=== PATIENT | female | born 1990 | race Caucasian/White ===

== ENCOUNTER 2017-02-23 11:58 | Emergency (ER) | payer BC, OTHER ==
[~2017-02-23] VITALS: Ht 162.6 cm; Wt 68.0 kg
--- NOTE | ~2017-02-23 | CR181 ---
[facility] A Service of [facility] & [facility] RADIOLOGY TEXT RESULTS PATIENT: SILVA RUSSELL LOCATION: [facility] : [birth year] UNIT #: [id number] AGE: [address]: Brooke Kwong APRN SEX: F ORDER DR: [id number] [facility] [address] [place], [place] [address] [id number] E MR#: [id number] Acc #: [id number] NAME: SILVA RUSSELL : 1990 SEX: F STUDY DATE/TIME: 02/23/2017 12:26 UNIT: [facility] ROOM: STUDY DESCRIPTION: CR Lumbar Spine 2 or 3 Views Attending Physician: Brooke Kwong A.P.R.N. Ordering Physician: Ed Doctor [id number] [facility] Primary Care Physician: Primary Care Physician No MEDICAL IMAGING REPORT This report is preliminary unless electronic signature is present EXAM Lumbar spine 02/23/2017. [facility] HISTORY 26-year-old female with increasing back pain, stiffness since fall on 02/22/2017. Patient in cervical collar. FINDINGS AP and lateral lumbar spine views show normal lumbar alignment and curvature. Vertebral body heights and disc spaces are preserved. Posterior elements are intact. IMPRESSION Negative lumbar spine. Dictated by... Yamil Santana M.D. THIS IS AN ELECTRONICALLY VERIFIED REPORT Yamil Santana M.D. at 02/23/2017 3:40 PM VIANCA/michelle TD: 02/23/2017 15:26 JOB #: [id number] MEDICAL IMAGING REPORT Page 1 of 1 COPY
--- NOTE | ~2017-02-23 | CR211 ---
[facility] A Service of [facility] & [facility] RADIOLOGY TEXT RESULTS PATIENT: SILVA URSSELL LOCATION: [facility] : [birth year] UNIT #: [id number] AGE: [address]: Brooke Kwong APRN SEX: F ORDER DR: [id number] [facility] [address] [place], [place] [address] [id number] E MR#: [id number] Acc #: [id number] NAME: SILVA RUSSELL : 1990 SEX: F STUDY DATE/TIME: UNIT: [facility] ROOM: STUDY DESCRIPTION: CR Ribs Uni 2 View W PA Ch Rt Attending Physician: Brooke Kwong A.P.R.N. Ordering Physician: Ed Freedom Alanis M.D. Primary Care Physician: Primary Care Physician No MEDICAL IMAGING REPORT This report is preliminary unless electronic signature is present EXAM Chest with right rib series 02/23/2017 1225 hours HISTORY Patient fell on 02/22/2017 complaining of anterior rib pain, back and neck pain on the right side with stiffness. COMPARISON 06/19/2015 chest film FINDINGS Upright chest film and AP and oblique views of the right ribs demonstrate normal cardiac, mediastinal and hilar contours. The lungs are well expanded and clear. There is no pleural effusion or pneumothorax. AP and oblique view of the right ribs demonstrate no rib fracture. IMPRESSION 1. No acute findings in the chest. 2. No right rib fracture, pleural effusion or pneumothorax. Dictated by... Blanquita Raza M.D. THIS IS AN ELECTRONICALLY VERIFIED REPORT Blanquita Raza M.D. at 02/23/2017 4:16 PM SMM/giselle TD: 02/23/2017 15:27 JOB #: [id number] MEDICAL IMAGING REPORT Page 1 of 1 COPY
--- NOTE | ~2017-02-23 | CR58 ---
[facility] A Service [facility] RADIOLOGY TEXT RESULTS PATIENT: SILVA RUSSELL LOCATION: [facility] : [birth year] UNIT #: [id number] AGE: [address]: Brooke Kwong APRN SEX: F ORDER DR: [id number] [facility] [address] [place], [place] [address] [id number] E MR#: [id number] Acc #: [id number] NAME: SILVA RUSSELL : 1990 SEX: F STUDY DATE/TIME: 02/23/2017 12:34 UNIT: [facility] ROOM: STUDY DESCRIPTION: CR Cervical Spine 2 or 3 Views Attending Physician: Brooke Kwong A.P.R.N. Ordering Physician: Ed Freedom Alanis M.D. Primary Care Physician: No Primary Care Physician MEDICAL IMAGING REPORT This report is preliminary unless electronic signature is present EXAM Cervical spine 02/23/2017, [facility]. HISTORY 26-year-old woman status post fall on 02/22/2017. Pain in the right anterior ribs, back and neck, right side with neck stiffness. Pain in neck getting worse. Patient in cervical collar. COMPARISON Cervical spine 11/10/2013. TECHNIQUE AP, lateral and odontoid views are provided. FINDINGS There is reversal of the normal cervical curve with slight cervical kyphotic curvature. Posterior alignment is preserved. Vertebral body heights and disc spaces are normal. Posterior elements are intact. The odontoid is intact. There is no prevertebral soft tissue swelling. IMPRESSION Mild reversal of the cervical curve only. Negative cervical spine otherwise. Dictated by... Yamil Santana M.D. THIS IS AN ELECTRONICALLY VERIFIED REPORT Yamil Santana M.D. at 02/23/2017 3:40 PM VIANCA/elyssa TD: 02/23/2017 15:24 JOB #: [id number] [facility] A Service of [facility] RADIOLOGY TEXT RESULTS PATIENT: SILVA RUSSELL [id number] [birth year] UNIT #: [id number] AGE: [address]: Brooke Kwong APRN SEX: F ORDER DR: MEDICAL IMAGING REPORT Page 1 of 1 COPY
--- NOTE | ~2017-02-23 | CR243 ---
[facility] A Service of [facility] & [facility] RADIOLOGY TEXT RESULTS PATIENT: SILVA RUSSELL LOCATION: [facility] : [birth year] UNIT #: [id number] AGE: [address]: Brooke Kwong APRN SEX: F ORDER DR: [id number] [facility] [address] [place], [place] [address] [id number] E MR#: [id number] Acc #: [id number] NAME: SILVA RUSSELL : 1990 SEX: F STUDY DATE/TIME: 02/23/2017 12:26 UNIT: [facility] ROOM: STUDY DESCRIPTION: CR Thoracic Spine 3 Views Attending Physician: Brooke Kwong A.P.R.N. Ordering Physician: Ed Doctor [id number] [facility] Primary Care Physician: Primary Care Physician No MEDICAL IMAGING REPORT This report is preliminary unless electronic signature is present EXAM Thoracic spine, 02/23/2017 HISTORY 26-year-old female increasing back pain since fall on 02/22/2017. Pain upper back ,lower back and cervical spine. Symptoms increasing. FINDINGS AP and lateral thoracic spine views show normal thoracic alignment and curvature. Vertebral body heights and disc spaces are preserved. Paravertebral soft tissues are normal. IMPRESSION Negative thoracic spine. Dictated by... Yamil Santana M.D. THIS IS AN ELECTRONICALLY VERIFIED REPORT Yamil Santana M.D. at 02/23/2017 3:40 PM Cindy TD: 02/23/2017 15:25 JOB #: [id number] MEDICAL IMAGING REPORT Page 1 of 1 COPY
[~2017-02-23 11:58] MED LIST: AMOXICILLIN875 MG PO; ANAPROX DS550 M1 PO; AURALGAN EAR DR14 ML OT; GENESUPP-5001 CAP PO; MUCINEX D ER T1 EACH; NAPROSYN500 MG PO; PRENATAL1 TA1; TYLENOL #3 PO; TYLENOL325 M1; VICODIN 5/1 TAB 5/50 PO; ZOFRAN8 MG; ZYRTEC
== END 2017-02-23 13:35 | disposition home or self-care (01) ==
LOC: CFTX 11:58 → CED 11:58 → CFTX 13:30
DX: S33.5XXA Sprain of ligaments of lumbar spine, initial encounter (principal); S13.4XXA Sprain of ligaments of cervical spine, initial encounter; S23.3XXA Sprain of ligaments of thoracic spine, initial encounter; S20.211A Contusion of right front wall of thorax, initial encounter; Z76.5 Malingerer [conscious simulation]; F17.210 Nicotine dependence, cigarettes, uncomplicated; W01.0XXA Fall on same level from slipping, tripping and stumbling without subsequent striking against object, initial encounter; Y92.89 Other specified places as the place of occurrence of the external cause
CPT/HCPCS: 71101; 72040; 72072; 72100; 99283